=== PATIENT | female | born 1960 | race American Indian/Alaskan Native ===

== ENCOUNTER 2016-12-18 08:15 | Outpatient (CLI) | payer BC ==
--- NOTE | 2016-12-18 12:29 | XRay Report ---
X-RAY BILATERAL STERNOCLAVICULAR JOINTS THREE VIEWS: 12/18/16 CLINICAL: Sternoclavicular enlargement. FINDINGS: The right sternoclavicular joint is normal. The proximal right clavicle is normal with no bone lesion identified. There is a small erosion of the proximal left clavicle at the sternoclavicular joint. The clavicle and left sternoclavicular joint are otherwise normal. IMPRESSION: 1. Mild left sternoclavicular arthritis with a small erosion of the proximal left clavicle at the left sternoclavicular joint. 2. Normal right proximal clavicle and normal right sternoclavicular joint.
--- NOTE | 2016-12-18 16:24 | Mammography Report ---
BILATERAL DIGITAL SCREENING MAMMOGRAM with CAD: 12/18/16 08:15:00 CLINICAL: Routine screening. COMPARISON:11/26/15 FINDINGS: The breasts are almost entirely fatty.a previously described left outer asymmetry is stable. Benign right calcifications. No mass, architectural distortion or suspicious calcifications. IMPRESSION: No mammographic evidence of malignancy. BI-RADS CATEGORY: 2 -- Benign RECOMMENDATION: Routine mammographic screening in one year. COMMENT: Patient follow-up letters are generated by our [employer] application.
== END 2016-12-18 08:16 | disposition home or self-care (01) ==
LOC: SPVWC 08:15
DX: Z12.31 Encounter for screening mammogram for malignant neoplasm of breast (principal); M25.812 Other specified joint disorders, left shoulder; M13.812 Other specified arthritis, left shoulder
CPT/HCPCS: 71130; G0202; 77067

== ENCOUNTER 2018-02-12 09:52 | Outpatient (CLI) | payer BC ==
--- NOTE | 2018-02-12 11:01 | Mammography Report ---
BILATERAL MAMMOGRAM: FINDINGS: The breasts are almost entirely fat (<25% glandular). No mass, distortion, suspicious calcification, or skin change is seen. No change identified compared to November 2016. CAD was utilized. IMPRESSION: Negative mammogram. There is no mammographic evidence of malignancy. RECOMMENDATION: Follow-up per ACS guidelines. BI-RADS CATEGORY: 1 = Negative ACR BI-RADS MAMMOGRAPHIC CODES: 0 = Needs additional imaging evaluation; 1 = Negative; 2 = Benign; 3 = Probably benign; 4 = Suspicious; 5 = Malignant; 6 = Known biopsy-proven malignancy COMMENT: 1. Dense breast tissue, i.e., adenosis, fibrocystic changes, etc., may obscure an underlying neoplasm. 2. Approximately 10% of cancers are not detected with mammography. 3. A negative mammography report should not delay biopsy if a clinically suspicious mass is present. COMMENT: Patient follow-up letters are generated in [employer].
== END 2018-02-12 09:53 | disposition home or self-care (01) ==
LOC: SPVWC 09:52
DX: Z12.31 Encounter for screening mammogram for malignant neoplasm of breast (principal)
CPT/HCPCS: 77067

== ENCOUNTER 2018-02-13 13:27 | Emergency (ER) | payer BC ==
[2018-02-13 13:37] VITALS: BP 178/85
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
[2018-02-13] MEDS ORDERED: NORCO 5/325 PO ONE (14:38)
[2018-02-13] MEDS ORDERED: FLEXERIL PO ONE (14:38)
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
[2018-02-13] MEDS ORDERED: TRIPLE ANTIBIOTIC TP ONE (17:39)
== END 2018-02-13 18:08 | disposition home or self-care (01) ==
LOC: ED 13:27
DX: S39.012A Strain of muscle, fascia and tendon of lower back, initial encounter (principal); S80.812A Abrasion, left lower leg, initial encounter; S80.811A Abrasion, right lower leg, initial encounter; M25.50 Pain in unspecified joint; I10 Essential (primary) hypertension; E11.9 Type 2 diabetes mellitus without complications; Z90.711 Acquired absence of uterus with remaining cervical stump; X58.XXXA Exposure to other specified factors, initial encounter; Y93.89 Activity, other specified; Y92.89 Other specified places as the place of occurrence of the external cause; Y99.8 Other external cause status
CPT/HCPCS: 72100; A6250

== ENCOUNTER 2019-02-21 08:31 | Outpatient (CLI) | payer BC ==
--- NOTE | 2019-02-21 11:02 | Mammography Report ---
BILATERAL DIGITAL SCREENING MAMMOGRAM WITH CAD INDICATION: Routine screening mammography. TECHNIQUE: Digital bilateral 2D mammography was obtained in the craniocaudal and mediolateral obliq ue projections. This examination was interpreted with the benefit of Computer-Aided Detection analysi s. COMPARISON: 02/12/2018 and 11/26/2015 FINDINGS: Breast Density: The breasts are almost entirely fatty. No mass, architectural distortion or suspicious calcifications. Right benign calcifications and a lef t lower focal asymmetry are not significantly changed since 2015. IMPRESSION:No mammographic evidence of malignancy. BI-RADS Category 2: Benign. No mammographic evidence of malignancy. Recommend routine screening ma mmography in one year. A "normal" or negative report should not discourage follow up or biopsy of a clinically significant f inding. A written summary of these findings will be mailed to the patient. The patient will be entered into a mammography reporting system which will generate a reminder letter for the patient's next appointmen t at the appropriate interval. The [employer] recommends yearly mammograms starting at age 40 and continuing as l [place] as a woman is in good health. Breast MRI is recommended for women with an approximate 20-25% or greater lifetime risk of breast cancer, including women with a strong family history of breast or ova aleja cancer or who have been treated for Hodgkin's disease. Signer Name: Mino Bhakta MD Signed: 02/21/2019 10:58 AM Workstation Name: [id number]
== END 2019-02-21 08:32 | disposition home or self-care (01) ==
LOC: SPVWC 08:31
PROVIDERS: ATTEND Family Medicine
DX: Z12.31 Encounter for screening mammogram for malignant neoplasm of breast (principal); I10 Essential (primary) hypertension; Z90.710 Acquired absence of both cervix and uterus
CPT/HCPCS: 77067

== ENCOUNTER 2020-07-26 08:04 | Emergency (ER) | payer OTHER, BC ==
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
--- NOTE | 2020-07-26 12:23 | XRay Report ---
XR spine lumbosacral 2-3V INDICATION / CLINICAL INFORMATION: back pain. COMPARISON: 02/13/2018 FINDINGS: BONES/JOINT(S): There are transitional features at the lumbosacral junction. Lumbar spinal alignment is preserved. Vertebral body heights are intact. Lumbar disc spaces are largely preserved with scatte red marginal osteophytes. There is mild lower lumbar facet joint degeneration. No evidence of fractur e. PARASPINAL SOFT TISSUES:No significant abnormality. ADDITIONAL FINDINGS: None. IMPRESSION: Mild lower lumbar facet arthropathy. No acute process. Signer Name: Mati Palacios MD Signed: 07/26/2020 12:18 PM Workstation Name: [id number]
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
[2020-07-26 13:19] VITALS: BP 135/69
== END 2020-07-26 13:19 | disposition home or self-care (01) ==
LOC: ED 08:04
DX: S16.1XXA Strain of muscle, fascia and tendon at neck level, initial encounter (principal); S39.012A Strain of muscle, fascia and tendon of lower back, initial encounter; I10 Essential (primary) hypertension; E11.9 Type 2 diabetes mellitus without complications; Z98.890 Other specified postprocedural states; Z79.899 Other long term (current) drug therapy; Z88.1 Allergy status to other antibiotic agents; Z88.2 Allergy status to sulfonamides; V49.49XA Driver injured in collision with other motor vehicles in traffic accident, initial encounter; Y93.89 Activity, other specified; Y92.410 Unspecified street and highway as the place of occurrence of the external cause; Y99.8 Other external cause status
CPT/HCPCS: 70450; 72100; 72125; Q9967

== ENCOUNTER 2020-12-14 08:25 | Outpatient (CLI) | payer BC ==
--- NOTE | 2020-12-14 09:51 | Mammography Report ---
DIGITAL SCREENING MAMMOGRAM WITH CAD, 12/14/2020 CLINICAL INFORMATION / INDICATION: Routine screening mammography. TECHNIQUE: Digital bilateral 2D mammography was obtained in the craniocaudal and mediolateral obliqu e projections. This examination was interpreted with the benefit of Computer-Aided Detection analysis . COMPARISON: Prior mammogram 02/21/2019 and 02/12/2018 FINDINGS: Breast Density: The breasts are almost entirely fatty. No dominant mass, suspicious calcifications, or architectural distortion in either breast. There are stable benign-appearing calcifications in the right breast. There has been no significant c hange compared with the prior examinations. IMPRESSION: No mammographic evidence of malignancy. Follow up recommendation: Routine yearly BI-RADS Category 2: Benign. A "normal" or negative report should not discourage follow up or biopsy of a clinically significant f inding. A written summary of these findings will be mailed to the patient. The patient will be entered into a mammography reporting system which will generate a reminder letter for the patient's next appointmen t at the appropriate interval. The [employer] recommends yearly mammograms starting at age 40 and continuing as l [place] as a woman is in good health. Breast MRI is recommended for women with an approximate 20-25% or greater lifetime risk of breast cancer, including women with a strong family history of breast or ova aleja cancer or who have been treated for Hodgkin's disease. Signer Name: Em Cameron MD Signed: 12/14/2020 9:47 AM Workstation Name: [email or web address]
== END 2020-12-14 08:26 | disposition home or self-care (01) ==
LOC: SPVWC 08:25
PROVIDERS: ATTEND Family Medicine
DX: Z12.31 Encounter for screening mammogram for malignant neoplasm of breast (principal); N64.89 Other specified disorders of breast
CPT/HCPCS: 77067

== ENCOUNTER 2022-01-08 10:44 | Outpatient (CLI) | payer BC ==
--- NOTE | 2022-01-10 10:28 | Mammography Report ---
DIGITAL SCREENING MAMMOGRAM WITH CAD, 01/08/2022 CLINICAL INFORMATION / INDICATION: Routine screening mammography. SCREENING MAMMO TECHNIQUE: Digital bilateral 2D mammography was obtained in the craniocaudal and mediolateral obliqu e projections. This examination was interpreted with the benefit of Computer-Aided Detection analysis . COMPARISON: 12/14/2020. FINDINGS: Breast Density: There are scattered areas of fibroglandular density. No dominant mass, suspicious calcifications, or architectural distortion in either breast. IMPRESSION: No mammographic evidence of malignancy. Follow up recommendation: Routine yearly screening mammogram. BI-RADS Category 1: NEGATIVE A "normal" or negative report should not discourage follow up or biopsy of a clinically significant f inding. A written summary of these findings will be mailed to the patient. The patient will be entered into a mammography reporting system which will generate a reminder letter for the patient's next appointmen t at the appropriate interval. The [employer] recommends yearly mammograms starting at age 40 and continuing as l [place] as a woman is in good health. Breast MRI is recommended for women with an approximate 20-25% or greater lifetime risk of breast cancer, including women with a strong family history of breast or ova aleja cancer or who have been treated for Hodgkin's disease. Signer Name: Eh Asencio MD Signed: 01/10/2022 10:24 AM Workstation Name: [email or web address]
== END 2022-01-08 10:45 | disposition home or self-care (01) ==
LOC: SPVWC 10:44
PROVIDERS: ATTEND Family Medicine
DX: Z12.31 Encounter for screening mammogram for malignant neoplasm of breast (principal)
CPT/HCPCS: 77067